=== PATIENT | female | born 1990 | race Hispanic/Latino ===

== ENCOUNTER 2025-04-15 11:19 | Outpatient (CLI) | payer BC, MEDICAID | END 2025-04-15 11:20 | disposition home or self-care (01) | LOC: SCSULT 11:19 | PROVIDERS: ATTEND Family Medicine | DX: Z34.02 Encounter for supervision of normal first pregnancy, second trimester (principal); Z3A.18 18 weeks gestation of pregnancy | CPT/HCPCS: 76805 ==